=== PATIENT | male | born 1955 | race Caucasian/White ===

== ENCOUNTER → 2024-03-12 | Outpatient (CLI) | payer MEDICARE, OTHER, SELFPAY ==
--- NOTE | 2024-03-12 14:45 | MRI_ITS ---
HISTORY: PERIPHERAL VISION LOSS RT EYE. TECHNIQUE: Multiplanar and multisequence MR images of the brain were obtained before and after the intravenous administration of 23 cc clariscan. 375 images. COMPARISON: None. FINDINGS: BRAIN PARENCHYMA: Mild foci and small zones of increased T2 FLAIR signal in the bilateral cerebral white matter. No abnormal focus of restricted diffusion. No acute intracranial hemorrhage identified. No enhancing lesion in the brain parenchyma. CSF SPACES: Mild generalized volume loss. No significant midline shift or other mass effect.No extra-axial fluid collection. VASCULAR SYSTEM: Major intracranial flow voids are maintained. PARANASAL SINUSES AND MASTOID AIR CELLS: No significant air fluid levels. Mild maxillary sinus mucosal thickening. ORBITS: Symmetric contents without fluid collection or enhancing mass. Bilateral lens resections. No signal abnormality in the optic nerves. Unremarkable optic chiasm without mass effect. MRI/Brain W/WO Contrast IMPRESSION: No evidence of enhancing intracranial or orbital mass. No evidence for acute infarct. Mild chronic involutional and white matter changes. Electronically Signed: Allie Mckeon MD at 15:33 EDT ,
[2024-03-12 16:11] LABS: CREATININE FINGERSTICK < 1.0 mg/dL (0.70-1.30); EGFR FINGERSTICK > 60.0000 mL/min (>60)
== END | disposition home or self-care (01) ==
PROVIDERS: PCP Physician Assistant; Referring Provider Ophthalmology; Visit Provider Ophthalmology
DX: Z01.812 Encounter for preprocedural laboratory examination (principal); G44.029 Chronic cluster headache, not intractable; H53.10 Unspecified subjective visual disturbances
CPT/HCPCS: 70553; A9575